=== PATIENT | female | born 1970 | race Caucasian/White ===

== ENCOUNTER 2020-10-24 07:44 | Emergency (ER) | payer BC ==
[2020-10-24 08:19] VITALS: BP 128/51; PULSE 85
--- NOTE | 2020-10-24 08:39 | EDM.PDOC ---
ED HPI GENERAL MEDICAL PROBLEM - General Chief Complaint: Upper Extremity Injury/Pain Stated Complaint: PAIN IN SHOULDER BLADE Time Seen by Provider: 10/24/20 08:20 Source of Information: Reports: Patient, Old Records, RN History Limitations: Reports: No Limitations - History of Present Illness INITIAL COMMENTS - FREE TEXT/NARRATIVE: 50 yo female here with Pain to her R mid back after pulling on a hose to dislodge it from her stairs. Has a remote hx of a tear to a muscle in her back and states this feels the same. Has been icing the area. Needs a note for missing work today. 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 - Related Data Allergies Allergy/AdvReac Type Severity Reaction Status Date / Time ciprofloxacin [From Cipro] Allergy Anaphylactic Verified 10/24/20 08:11 Shock ciprofloxacin HCl Allergy Anaphylactic Verified 10/24/20 08:11 [From Cipro] Shock pseudoephedrine HCl Allergy Cannot Verified 10/24/20 08:11 [From Sudafed] Remember Sulfa (Sulfonamide Allergy Anaphylactic Verified 10/24/20 08:11 Antibiotics) Shock Home Meds: Home Meds NK [No Known Home Meds] 12/14/14 [History] Past Medical History HEENT History: Reports: Impaired Vision Respiratory History: Reports: Sleep Apnea Other Respiratory History: cpap Gastrointestinal History: Reports: None Genitourinary History: Reports: None 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 MUD PLANT OPERATOR History: CYST IN UTERUS Neurological History: Reports: Concussion Endocrine/Metabolic History: Reports: Other (See Below) Immunologic History: Reports: Other (See Below) - Infectious Disease History Infectious Disease History: Reports: Chicken Pox, Shingles - Past Surgical History Head Surgeries/Procedures: Reports: None HEENT Surgical History: Reports: Tonsillectomy Respiratory Surgical History: Reports: None GI Surgical History: Reports: Cholecystectomy Female Surgical History: Reports: Other (See Below) Other Female Surgeries/Procedures: ablation Endocrine Surgical History: Reports: None Neurological Surgical History: Reports: Scoliosis, Other (See Below) Dermatological Surgical History: Reports: None Social & Family History - Tobacco Use Tobacco Use Status *Q: Current Every Day Tobacco User Years of Tobacco use: 35 Packs/Tins Daily: 0.8 Used Tobacco, but Quit: No Second Hand Smoke Exposure: No - Caffeine Use Caffeine Use: Reports: Coffee - Recreational Drug Use Recreational Drug Use: No Review of Systems - Review of Systems Review Of Systems: See Below Constitutional: Reports: No Symptoms Musculoskeletal: Reports: Back Pain (Tender at level of inferior edge of scapula on R. ) Skin: Reports: No Symptoms Neurological: Reports: No Symptoms ED EXAM, GENERAL - Physical Exam Exam: See Below Exam Limited By: No Limitations General Appearance: Alert, WD/WN, No Apparent Distress Extremities: Normal Inspection, No Pedal Edema, Limited Range of Motion (of R arm due to pain. Has point tenderness to mid R back at level of lower edge of scapula. ). No: Normal Range of Motion, Non-Tender, Pedal Edema Neurological: Alert, Oriented, CN II-XII Intact, Normal Cognition, No Motor/Sensory Deficits Psychiatric: Normal Affect, Normal Mood Skin Exam: Warm, Dry, Intact, Normal Color, No Rash Course - Vital Signs Last Recorded V/S: Last Vital Signs Temp 36.6 C 10/24/20 08:19 Pulse 85 10/24/20 08:19 Resp 15 10/24/20 08:19 BP 128/51 L 10/24/20 08:19 Pulse Ox 100 10/24/20 08:19 - Orders/Labs/Meds Orders: Active Orders 24 hr Category Date Time Status Consult to Orthopedic Clinic [CONS] Routine Cons 10/24/20 08:32 Ordered Departure - Departure Time of Disposition: 08:40 Disposition: Home, Self-Care 01 Condition: Good Clinical Impression: Muscle injury - Discharge Information *PRESCRIPTION DRUG MONITORING PROGRAM REVIEWED*: No *COPY OF PRESCRIPTION DRUG MONITORING REPORT IN PATIENT MARCIA: No Instructions: How To Use a Sling, [id number] Referrals: PCP,None [Primary Care Provider] - Forms: ED Department Discharge, ED Return to Work/School Form Additional Instructions: Follow up this next week with orthopedics. Wear the sling for support. Use ice and if needed ibuprofen or acetaminophen for pain relief. Limit use of right arm to fine manipulation until seen by ortho. Sepsis Event Note (ED) - Evaluation Sepsis Screening Result: No Definite Risk - Focused Exam Vital Signs: Vital Signs Temp Pulse Resp BP Pulse Ox 10/24/20 08:19 36.6 C 85 15 128/51 L 100 10/24/20 08:18 36.6 C 85 15 128/51 L 100 - My Orders Last 24 Hours: My Active Orders 10/24/20 08:32 Consult to Orthopedic Clinic [CONS] Routine - Assessment/Plan Last 24 Hours: My Active Orders 10/24/20 08:32 Consult to Orthopedic Clinic [CONS] Routine
== END 2020-10-24 08:50 | disposition home or self-care (01) ==
LOC: JP.ED 07:44
DX: S29.002A Unspecified injury of muscle and tendon of back wall of thorax, initial encounter (principal); Z88.1 Allergy status to other antibiotic agents; Z88.2 Allergy status to sulfonamides; Z72.0 Tobacco use; X58.XXXA Exposure to other specified factors, initial encounter
CPT/HCPCS: 99283

== ENCOUNTER 2021-01-12 12:14 | Emergency (ER) | payer BC ==
[2021-01-12 12:21] VITALS: BP 103/49; PULSE 79
[2021-01-12] MEDS ORDERED: Meclizine 25 MG Tab PO ONE (13:19)
--- NOTE | 2021-01-12 13:25 | EDM.PDOC ---
ED HPI GENERAL MEDICAL PROBLEM - General Chief Complaint: Cardiovascular Problem Stated Complaint: MEDICAL VIA [place] Time Seen by Provider: 01/12/21 13:10 Source of Information: Reports: Patient, EMS, Old Records History Limitations: Reports: No Limitations - History of Present Illness INITIAL COMMENTS - FREE TEXT/NARRATIVE: 50 yo smoking female presents with mild chest tightness and vertigo. Has mild nausea. No SOB, nausea, or diaphoresis. Dizziness is worse with turning of her head. No diarrhea. No calf pain or LE edema. Here via EMS. Onset: Today Onset Date: 01/12/21 Duration: Hour(s):, Constant Location: Reports: Chest Quality: Reports: Pressure Severity: Mild Improves with: Reports: None Worsens with: Reports: None Context: Reports: Other (See HPI) Associated Symptoms: Reports: Chest Pain (mild, pressure), Nausea/Vomiting (mild nausea intermittently, no vomiting). 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: Other (see below) (albuterol) - Related Data Allergies Allergy/AdvReac Type Severity Reaction Status Date / Time acetaminophen [From [place]] Allergy Confusion Verified 01/12/21 12:15 ciprofloxacin [From Cipro] Allergy Anaphylactic Verified 01/12/21 12:15 Shock ciprofloxacin HCl Allergy Anaphylactic Verified 01/12/21 12:15 [From Cipro] Shock glucosamine Allergy Other Verified 01/12/21 12:15 hydrocodone [From [place]] Allergy Confusion Verified 01/12/21 12:15 Iodinated Contrast Media Allergy Other Verified 01/12/21 12:15 metronidazole [From Flagyl] Allergy Other Verified 01/12/21 12:15 pseudoephedrine HCl Allergy Cannot Verified 01/12/21 12:15 [From Sudafed] Remember Sulfa (Sulfonamide Allergy Anaphylactic Verified 01/12/21 12:15 Antibiotics) Shock sulfite Allergy Hives Verified 01/12/21 12:15 Home Meds: Home Meds Bioflavonoids, [place] [Bioflavonoid [place]] 1,000 mg PO DAILY 10/29/20 [History] Cholecalciferol (Vitamin D3) [Vitamin D3] 5,000 unit PO DAILY 10/29/20 [History] L.acidoph,Paracasei, B.lactis [Probiotic] 1 each PO DAILY 10/29/20 [History] Magnesium 250 mg PO DAILY 10/29/20 [History] Turmeric 400 mg PO DAILY 10/29/20 [History] Albuterol Sulfate [Proair Respiclick] 90 mcg IH ASDIRECTED 01/12/21 [History] Fluticasone/Umeclidin/Vilanter [Trelegy Ellipta 100-62.5-25] 1 puff INH DAILY 01/12/21 [History] predniSONE 5 mg PO DAILY 01/12/21 [History] Past Medical History HEENT History: Reports: Impaired Vision Respiratory History: Reports: Asthma, Sleep Apnea Other Respiratory History: cpap Gastrointestinal History: Reports: None Genitourinary History: Reports: None 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 CORRECTION OFFICER History: CYST IN UTERUS Musculoskeletal History: Reports: Other (See Below) Other Musculoskeletal History: R shoulder injury 10/24/20 Neurological History: Reports: Concussion Endocrine/Metabolic History: Reports: Other (See Below) Other Endocrine/Metabolic History: hashimotos Immunologic History: Reports: Other (See Below) - Infectious Disease History Infectious Disease History: Reports: Chicken Pox, Shingles - Past Surgical History Head Surgeries/Procedures: Reports: None HEENT Surgical History: Reports: Tonsillectomy Respiratory Surgical History: Reports: None GI Surgical History: Reports: Cholecystectomy Female Surgical History: Reports: Other (See Below) Other Female Surgeries/Procedures: ablation Endocrine Surgical History: Reports: None Neurological Surgical History: Reports: Scoliosis, Other (See Below) Musculoskeletal Surgical History: Reports: None Dermatological Surgical History: Reports: None Social & Family History - Tobacco Use Tobacco Use Status *Q: Current Every Day Tobacco User Years of Tobacco use: 20 Packs/Tins Daily: 1 - Caffeine Use Caffeine Use: Reports: Coffee ED ROS GENERAL - Review of Systems Review Of Systems: See Below Constitutional: Reports: No Symptoms HEENT: Reports: No Symptoms Respiratory: Reports: No Symptoms. Denies: Shortness of Breath, Cough, Sputum, Hemoptysis Cardiovascular: Reports: Chest Pain. Denies: Dyspnea on Exertion, Edema, Orthopnea GI/Abdominal: Reports: Nausea (mild, intermittent). Denies: Abdominal Pain, Constipation, Diarrhea, Vomiting : Reports: No Symptoms Musculoskeletal: Reports: No Symptoms Skin: Reports: No Symptoms Neurological: Reports: Dizziness. Denies: Headache ED EXAM, GENERAL - Physical Exam Exam: See Below Exam Limited By: No Limitations General Appearance: Alert, WD/WN, No Apparent Distress Eye Exam: Bilateral Eye: EOMI, Normal Inspection, PERRL Ears: Normal External Exam, Normal Canal, Hearing Grossly Normal, Normal TMs Ear Exam: Bilateral Ear: Auricle Normal, Canal Normal, TM normal Nose: Normal Inspection, No Blood Throat/Mouth: Normal Inspection, Normal Lips, Normal Oropharynx, Normal Voice, No Airway Compromise Head: Atraumatic, Normocephalic Neck: Normal Inspection Respiratory/Chest: No Respiratory Distress, Lungs Clear, Normal Breath Sounds, No Accessory Muscle Use Cardiovascular: Regular Rate, Rhythm, No Edema GI/Abdominal: Normal Bowel Sounds, Soft, Non-Tender, No Distention Back Exam: Normal Inspection. No: CVA Tenderness (R), CVA Tenderness (L) Extremities: Normal Inspection, Normal Range of Motion, Non-Tender, No Pedal Edema. No: Pedal Edema Neurological: Alert, Oriented, CN II-XII Intact, Normal Cognition, No M otor/Sensory Deficits Psychiatric: Normal Affect, Normal Mood Skin Exam: Warm, Dry, Intact, Normal Color, No Rash #1 Interpretation EKG Date: 01/12/21 Time: 13:30 Rhythm: NSR Rate (Beats/Min): 78 [place]: Normal ST-T: Normal QT: Prolonged Comparison: NA - No Prior EKG Course - Vital Signs Last Recorded V/S: Last Vital Signs Temp 36.6 C 01/12/21 12:21 Pulse 79 01/12/21 12:21 Resp 12 01/12/21 12:21 BP 103/49 L 01/12/21 12:21 Pulse Ox 99 01/12/21 12:21 - Orders/Labs/Meds Orders: Active Orders 24 hr Category Date Time Status EKG 12 Lead [EK] Routine Ther 01/12/21 13:19 Ordered Labs: Laboratory Tests 01/12/21 Range/Units 13:38 Troponin I < 0.017 (0.000-0.056) ng/mL Meds: Medications Discontinued Medications Generic Name Dose Route Start Last Admin Trade Name Freq PRN Reason Stop Dose Admin Meclizine HCl 25 mg 01/12/21 13:19 01/12/21 13:27 Meclizine 25 Mg Tab PO 01/12/21 13:20 25 mg ONETIME ONE Administration - Re-Assessments/Exams Free Text/Narrative Re-Assessment/Exam: 01/12/21 14:16 Feels better after meclizine Departure - Departure Time of Disposition: 14:16 Disposition: Home, Self-Care 01 Condition: Good Clinical Impression: Vertigo Instructions: Vertigo Referrals: PCP,None [Primary Care Provider] - Forms: ED Department Discharge Additional Instructions: Use meclizine 25 mg every 6 hrs as needed for vertigo. Recheck as needed. Sepsis Event Note (ED) - Evaluation Sepsis Screening Result: No Definite Risk - Focused Exam Vital Signs: Vital Signs Temp Pulse Resp BP Pulse Ox 01/12/21 12:21 36.6 C 79 12 103/49 L 99 01/12/21 12:16 36.6 C 79 12 103/49 L 99 - My Orders Last 24 Hours: My Active Orders 01/12/21 13:19 EKG 12 Lead [EK] Routine - Assessment/Plan Last 24 Hours: My Active Orders 01/12/21 13:19 EKG 12 Lead [EK] Routine
== END 2021-01-12 14:32 | disposition home or self-care (01) ==
LOC: JP.ED 12:14
DX: R42 Dizziness and giddiness (principal); J45.909 Unspecified asthma, uncomplicated; Z72.0 Tobacco use; Z88.1 Allergy status to other antibiotic agents; Z88.8 Allergy status to other drugs, medicaments and biological substances; Z88.5 Allergy status to narcotic agent; Z91.041 Radiographic dye allergy status; Z88.2 Allergy status to sulfonamides; Z88.6 Allergy status to analgesic agent; Z79.899 Other long term (current) drug therapy
CPT/HCPCS: 36415; 84484; 93005; 99285; A9270